=== PATIENT | male | born 1945 | race Caucasian/White ===

== ENCOUNTER 2017-10-21 12:44 | Day surgery (SDC) | payer MEDICARE, BC ==
[~2017-10-21] VITALS: Ht 177.8 cm; Wt 91.4 kg
[2017-10-21 13:48] VITALS: BP 147/68; PULSE 61; TEMP 98
[2017-10-21] MEDS ORDERED: COLESTID 1GM1 G PO (13:53)
[2017-10-21] MEDS ORDERED: PRILOSEC 20MG20 MG PO (13:53)
[2017-10-21] MEDS ORDERED: CARDURA4 MG PO (13:54)
[2017-10-21] MEDS ORDERED: TOPROL XL100 MG PO (13:54)
[2017-10-21] MEDS ORDERED: PREDNISONE 5MG5 MG PO (13:55)
[2017-10-21] MEDS ORDERED: MULTI VITAMINS1 TAB PO (13:56)
[2017-10-21] MEDS ORDERED: CALCIUM 600/VIT1 CAP PO (13:56)
[2017-10-21] MEDS ORDERED: ULTRAM 50MG TAB50 MG PO (13:57)
[2017-10-21] MEDS ORDERED: PROBIOTIC FORMU1 CAP PO (13:58)
[2017-10-21] MEDS ORDERED: IMODIUM A-D2 MG PO (13:58)
[2017-10-21] MEDS ORDERED: PROLIA60 MG/ML SQ (13:59)
[2017-10-21 15:22] VITALS: TEMP 97.5
[2017-10-21 15:40] VITALS: BP 150/73; PULSE 51
[2017-10-21 15:55] VITALS: BP 148/78; PULSE 54
[2017-10-21] MEDS ORDERED: CIPRO 500MG TA500 MG PO (16:00)
[2017-10-21] MEDS ORDERED: NORCO 325 MG-51 TAB PO (16:00)
[2017-10-21] MEDS ORDERED: SENOKOT S 50 MG1 TAB PO (16:01)
[2017-10-21] MEDS ORDERED: PYRIDIUM 100MG100 MG PO (16:02)
[2017-10-21 16:10] VITALS: BP 123/76; PULSE 49
[2017-10-21 16:25] VITALS: BP 157/67; PULSE 64
== END 2017-10-21 16:44 | disposition home or self-care (01) ==
LOC: SDCO 12:44
DX: N21.0 Calculus in bladder (principal); M06.9 Rheumatoid arthritis, unspecified; Z87.891 Personal history of nicotine dependence; I10 Essential (primary) hypertension; K21.9 Gastro-esophageal reflux disease without esophagitis; Z79.899 Other long term (current) drug therapy; K58.8 Other irritable bowel syndrome
CPT/HCPCS: J1720; J3010; J7120

== ENCOUNTER 2018-12-19 11:15 | Day surgery (SDC) | payer MEDICARE, BC ==
[~2018-12-19] VITALS: Ht 177.8 cm; Wt 99.9 kg
[~2018-12-19 11:15] MED LIST: CALCIUM 600/VIT1 CAP PO; CARDURA4 MG PO; CIPRO 500MG TA500 MG PO; COLESTID 1GM1 G PO; IMODIUM A-D2 MG PO; MULTI VITAMINS1 TAB PO; NORCO 325 MG-51 TAB PO; PREDNISONE 5MG5 MG PO; PRILOSEC 20MG20 MG PO; PROBIOTIC FORMU1 CAP PO; PROLIA60 MG/ML SQ; PYRIDIUM 100MG100 MG PO; SENOKOT S 50 MG1 TAB PO; TOPROL XL100 MG PO; ULTRAM 50MG TAB50 MG PO
[2018-12-19 11:58] VITALS: BP 140/75; PULSE 79; TEMP 98.8
[2018-12-19] MEDS ORDERED: FLOMAX 0.40.4 MG/CAP PO (12:13)
[2018-12-19] MEDS ORDERED: CYMBALTA 30MG30 MG PO (12:16)
--- NOTE | 2018-12-19 12:17 | NUR ---
TO RM AT 1135- CALL LIGHT IN REACH FAMILY AT BEDSIDE.
[2018-12-19 15:00] VITALS: BP 149/83; PULSE 73; TEMP 97.5
--- NOTE | 2018-12-19 15:00 | NUR ---
TO RM 8 PER CART FROM PACU. ALERT ORIENTED X3, TALKING TO STAFF AND DAUGHTER. PATIENT ALREADY DRANK 2 C WATER AND TOLERATED WELL. DENIES PAIN OR DISCOMFORT. DENIES NAUSEA/VOMITING.
[2018-12-19] MEDS ORDERED: NORCO 325 MG-51 TAB PO (15:12)
[2018-12-19 15:15] VITALS: BP 164/82; PULSE 60
--- NOTE | 2018-12-19 15:15 | NUR ---
02 SAT 97% ON ROOM AIR. RECEIVED MUFFIN AND 3RD CUP WATER.
[2018-12-19 15:30] VITALS: BP 175/86; PULSE 67
--- NOTE | 2018-12-19 15:30 | NUR ---
ATE 100% AND TOLERATED WELL.
[2018-12-19 15:35] VITALS: BP 146/89; PULSE 74; TEMP 97.5
--- NOTE | 2018-12-19 15:45 | NUR ---
AMBULATED TO BATHROOM AND VOIDED. DISCONTINUED IV AND INT- CATHETER INTACT. PATIENT AND DAUGHTER RECEIVED DISCHARGE INSTRUCTIONS PATIENT GETTING DRESSED
--- NOTE | 2018-12-19 16:00 | NUR ---
DISCHARGED PER WC BY NURSING STAFF TO PRIVATE CAR IN CARE OF DAUGHTER AIDAN.
== END 2018-12-19 16:12 | disposition home or self-care (01) ==
LOC: SDCO 11:15
DX: N20.2 Calculus of kidney with calculus of ureter (principal); N21.0 Calculus in bladder; J84.89 Other specified interstitial pulmonary diseases; E78.5 Hyperlipidemia, unspecified; I10 Essential (primary) hypertension; K58.9 Irritable bowel syndrome, unspecified; N40.1 Benign prostatic hyperplasia with lower urinary tract symptoms; R33.8 Other retention of urine; M06.9 Rheumatoid arthritis, unspecified; K21.9 Gastro-esophageal reflux disease without esophagitis; G89.29 Other chronic pain; M35.3 Polymyalgia rheumatica; Z85.828 Personal history of other malignant neoplasm of skin; Z90.49 Acquired absence of other specified parts of digestive tract; Z79.52 Long term (current) use of systemic steroids; Z87.891 Personal history of nicotine dependence; Z83.3 Family history of diabetes mellitus; Z82.49 Family history of ischemic heart disease and other diseases of the circulatory system; Z80.8 Family history of malignant neoplasm of other organs or systems; Z80.42 Family history of malignant neoplasm of prostate; Z88.8 Allergy status to other drugs, medicaments and biological substances
CPT/HCPCS: C1769; C2617; J0690; J1100; J2405; J2704; J3010; J7120; Q9967

== ENCOUNTER 2018-12-29 13:08 | Day surgery (SDC) | payer MEDICARE, BC ==
[~2018-12-29] VITALS: Ht 177.8 cm; Wt 98.6 kg
[2018-12-29] VITALS (10 sets, daily range): BP systolic 142–175; BP diastolic 74–92; PULSE 64–100; TEMP 98.1
[~2018-12-29 13:08] MED LIST changes: +CYMBALTA 30MG30 MG PO; +FLOMAX 0.40.4 MG/CAP PO
[2018-12-29] MEDS ORDERED: VITAMIN K0.1 MG PO (13:46)
--- NOTE | 2018-12-29 23:51 | NUR ---
Patient to the floor at 1850. at bedside. Patient states he would like to stay the night as he lives far away and doesn't want to have any complications going home this evening. Dr. Monson notified and orders as follows: Admit overnight observation status, General diet, Saline lock to INT when OR fluids are complete, Lamar 5/325mg PO q4hr PRN for pain, Zofran 4mg IV q8hr for nausea, continue medications taken by patient in the evening. Patient and updated on new orders. Patient up frequently to use the restroom. Gait steady. Denies pain. Noted to be hypertensive, but after HS BP medication, it has come down. Will continue to monitor patient.
--- NOTE | 2018-12-30 00:15 | NUR ---
Dr. Monson updated on hypertension and he stated to just monitor it for now. Will continue to monitor.
[2018-12-30 04:06] VITALS: BP 122/77; PULSE 105; TEMP 98.7
--- NOTE | 2018-12-30 05:35 | NUR ---
Patient has rested well throughout the night. at bedside. No complaints of pain. Urinating less frequently, and decent amounts.
[2018-12-30 07:34] VITALS: BP 129/70; PULSE 98; TEMP 97.9
--- NOTE | 2018-12-30 09:00 | NUR ---
Patient alert and oriented, answers questions. See assessment. No c/o urinary frequency, hesitancy or burning. No other c/o at this time.
--- NOTE | 2018-12-30 09:30 | NUR ---
BIRGIT met with the patient and patient's , Yanet, to discuss discharge plan. The patient lives [place] of [place] with his . He reports independence with ADLs and has a cane. The patient's PCP is Dr. Luis Rasmussen and he receives his medications at [facility]. He reports no difficulties obtaining his meds. The patient does not have advanced directives, but he was interested in obtaining a form for DPOA-HC. BIRGIT provided. The patient plans to return home with his upon discharge. No additional needs at this time.
--- NOTE | 2018-12-30 11:04 | NUR ---
Initial visit; Patient and his thanked [employer] for spiritual care; listening, visiting and wishing patient well.
--- NOTE | 2018-12-30 12:05 | NUR ---
Discharge instructions reviewed with patient and spouse, verbalized understanding. Discharged ambulatory to auto/home with family at 1130.
== END 2018-12-30 11:30 | disposition home or self-care (01) ==
LOC: SDCO 13:08 → SURG 19:36 → SDCO 12-30 11:30
DX: N20.0 Calculus of kidney (principal); Z87.442 Personal history of urinary calculi; N40.1 Benign prostatic hyperplasia with lower urinary tract symptoms; R35.0 Frequency of micturition; R35.1 Nocturia; Z90.49 Acquired absence of other specified parts of digestive tract; Z85.828 Personal history of other malignant neoplasm of skin; Z79.899 Other long term (current) drug therapy; K58.9 Irritable bowel syndrome, unspecified; Z87.01 Personal history of pneumonia (recurrent); Z87.891 Personal history of nicotine dependence; Z82.49 Family history of ischemic heart disease and other diseases of the circulatory system; Z80.8 Family history of malignant neoplasm of other organs or systems; E78.5 Hyperlipidemia, unspecified; I10 Essential (primary) hypertension; J40 Bronchitis, not specified as acute or chronic; K21.9 Gastro-esophageal reflux disease without esophagitis; M06.9 Rheumatoid arthritis, unspecified; G89.29 Other chronic pain; M54.2 Cervicalgia; M35.3 Polymyalgia rheumatica
CPT/HCPCS: OP; C1769; C1894; C2617; J0690; J1100; J2405; J2704; J3010; J7120

== ENCOUNTER 2019-11-23 13:53 | Day surgery (SDC) | payer MEDICARE, BC ==
[~2019-11-23] VITALS: Ht 177.8 cm; Wt 101.4 kg
[2019-11-23] VITALS (10 sets, daily range): BP systolic 120–181; BP diastolic 75–87; PULSE 55–100; TEMP 97.8–97.9
[~2019-11-23 13:53] MED LIST changes: +VITAMIN K0.1 MG PO
[2019-11-23] MEDS ORDERED: PREDNISONE10 MG PO (15:26)
[2019-11-23] MEDS ORDERED: TOPROL XL100 MG PO (15:28)
[2019-11-23] MEDS ORDERED: NORCO 325 MG-51 TAB PO (15:41)
[2019-11-23] MEDS ORDERED: RT ADVAIR HFA 1112 G IH (15:43)
[2019-11-23] MEDS ORDERED: PROAIR HFA0.09 MG/AC IH (15:44)
[2019-11-23] MEDS ORDERED: MUCINEX 60600 MG/TA1 PO (15:45)
[2019-11-23] MEDS ORDERED: ZITHROMAX500 M2 PO (15:46)
--- NOTE | 2019-11-24 01:37 | NUR ---
Patient has been able to eat and drink without complaints of nausea. Patient is independent able able to void without difficulty, urine currently pale pink and clear. Patient has complained about chronic joint pain which he takes Ultram for. Pain medication given as requested and patient has been able to rest comfortably this shift. Patient had elevated pressures early in the shift, but was given his home dose of cardura and now blood pressures are within normal limits.
[2019-11-24 04:01] VITALS: BP 125/65; PULSE 77; TEMP 98
[2019-11-24 07:53] VITALS: BP 133/68; PULSE 115; TEMP 98.6
--- NOTE | 2019-11-24 08:00 | NUR ---
Patient sitting up on edge of bed. Alert and oriented x 3. Assessment complete. Independent in room. INT without complications. Denies further needs at this time.
--- NOTE | 2019-11-24 10:13 | NUR ---
BIRGIT met with the patient and his , Yanet ([phone]), to discuss discharge plan. The patient lives outside of [place] with his . He reports independence with ADLs and has a cane. The patient's PCP is Dr. Luis Rasmussen and he receives his medications at [facility] [address]. He reports no difficulties obtaining his meds. The patient does not have advanced directives in EMR, but he reports that he does have them completed and that his is his DPOA-HC. The patient plans to return home with his upon discharge. No additional needs at this time.
--- NOTE | 2019-11-24 12:07 | NUR ---
First visit from the food cart attendant. No needs right now.
[2019-11-24 12:20] VITALS: BP 126/81; PULSE 72
--- NOTE | 2019-11-24 12:30 | NUR ---
Discharge education provided to patient. Educated on when to call provider and follow up appointment. All questions answered. INT discontinued, catheter tip intact. Denies further needs at this time. Patient ambulated out with surgical staff and spouse.
== END 2019-11-24 12:30 | disposition home or self-care (01) ==
LOC: SDCO 13:53 → JCC 20:59 → SDCO 11-24 12:30
DX: N20.2 Calculus of kidney with calculus of ureter (principal); E78.5 Hyperlipidemia, unspecified; I10 Essential (primary) hypertension; M06.9 Rheumatoid arthritis, unspecified; K58.9 Irritable bowel syndrome, unspecified; K21.9 Gastro-esophageal reflux disease without esophagitis; M35.3 Polymyalgia rheumatica; G89.29 Other chronic pain; M54.2 Cervicalgia; R20.2 Paresthesia of skin; N40.1 Benign prostatic hyperplasia with lower urinary tract symptoms; R33.8 Other retention of urine; R31.29 Other microscopic hematuria; J84.89 Other specified interstitial pulmonary diseases; Z85.828 Personal history of other malignant neoplasm of skin; Z87.891 Personal history of nicotine dependence; Z79.899 Other long term (current) drug therapy; Z90.49 Acquired absence of other specified parts of digestive tract
CPT/HCPCS: OP; C1769; C2617; J0690; J1100; J1720; J2405; J2704; J3010; J7120